=== PATIENT | female | born 1955 | race Asian ===

== ENCOUNTER 2016-06-20 15:04 | Emergency (ER) | payer OTHER ==
--- NOTE | 2016-06-20 17:25 | ED NURSING NOTES ---
Clinical Report - Nurses [facility] [address], [place] [address] 06/20/2016 15:06 Patient: KEYSHAWN DANIEL TRIAGE Triage time 1524. Acuity: LEVEL 3. Chief Complaint: VOMITING BLOOD and BLACK STOOLS. Alert. No acute distress. --15:31 Aracely Avery 15:27 06/20/16. BP: 151/111. HR: 96. RR: 16. O2 saturation: 100%. Temp: 97.7 F. Pain level now 0/10. --15:31 Aracely Avery. Weight: 57.1 kg. Height/Length: 62 inches. BMI: 23. --15:24 Aracely Avery. Medications HTN med. --15:29 Aracely Avery CHOLESTEROL MED. --15:29 Aracely Avery. Allergies No Known Drug Allergy. --17:40 Aracely Avery. History Arrived by private vehicle. Historian: patient. Unaccompanied. This started last night. ( Pt c/o vomiting blood, black stools, and feels that there is swelling in throat she thinks is cancer, pt had colonoscopy done last year). She has had vomiting. Treatment GUIDANCE SECRETARY: None. PAST MEDICAL HX: ( Unknown- Pt unable to relay details). SOCIAL HX: Never smoker. --15:31 Aracely Avery. PROBLEMS: Hypercholesterolemia. Hypertension. --15:29 Aracely Avery. ADDITIONAL SURGERIES: Colonoscopy. --15:29 Aracely Avery. Interventions ID band on patient. To treatment room. --15:31 Aracely Avery. PHYSICAL ASSESSMENT Ambulatory to room. Patient gowned. GENERAL / NEURO / PSYCH: Alert. Oriented X 4. Appears anxious. HEENT: Mucous membranes are pink. RESPIRATORY: Respirations not labored. Breath sounds within normal limits. CVS: Normal sinus rhythm noted. Capillary refill less than 2 seconds. GI / : The patient has had nausea. Emesis noted. Abdomen soft. Bowel sounds within normal limits. Stool color is abnormal. SKIN: Skin is warm and dry. --15:31 Aracely Avery. NURSING PROGRESS NOTES The plan of care for this patient has been created. Reassurance given. Call light placed in reach. Bed placed in lowest position. Brakes of bed on. Patient ready for evaluation- chart flagged. --15:32 Aracely Avery 15:42 06/20/2016 Site #1 started via IV in the right antecubital space with an 20g angiocath; one attempt. Blood drawn: rainbow set. Saline lock flushed with 10 mL saline. --15:42 Nguyen Fields R.N. EKG time: (1656). EKG was ordered, performed by a tech and shown to the ED physician. --16:59 Mary Puentes, PASCUAL Tech1 [employer] provided for the rectal exam by the physician. --17:22 Jaycob Perez R.N. DISPOSITION / DISCHARGE 17:39 06/20/2016 Site #1 removed upon discharge. Pressure dressing applied. --17:39 Aracely Avery Departure time: 1736. Condition at departure: improved and stable. Learning barriers present. Ability to learn limited by language barrier; teaching performed via interpreter translator service. Discharge instructions provided and reviewed with the patient. Reviewed medication(s). Patient verbalized understanding. Written instructions provided in Amharic. The patient was discharged by the physician. She was discharged home and unaccompanied at time of discharge. She left the Emergency Department ambulatory and via private vehicle. Patient driving. --17:39 Aracely Avery 17:39 06/20/16. BP: 132/72. HR: 72. RR: 18. O2 saturation: 99%. --17:39 Aracely Avery. Locked/Released at 06/20/2016 17:41 by Aracely Avery,
--- NOTE | 2016-06-20 17:25 | ED NURSING NOTES ---
Clinical Report - Nurses [facility] [address], [place] [address] 06/20/2016 15:06 Patient: KEYSHAWN DANIEL TRIAGE Triage time 1524. Acuity: LEVEL 3. Chief Complaint: VOMITING BLOOD and BLACK STOOLS. Alert. No acute distress. --15:31 Aracely Avery 15:27 06/20/16. BP: 151/111. HR: 96. RR: 16. O2 saturation: 100%. Temp: 97.7 F. Pain level now 0/10. --15:31 Aracely Avery. Weight: 57.1 kg. Height/Length: 62 inches. BMI: 23. --15:24 Aracely Avery. Medications HTN med. --15:29 Aracely Avery CHOLESTEROL MED. --15:29 Aracely Avery. Allergies No Known Drug Allergy. --17:40 Aracely Avery. History Arrived by private vehicle. Historian: patient. Unaccompanied. This started last night. ( Pt c/o vomiting blood, black stools, and feels that there is swelling in throat she thinks is cancer, pt had colonoscopy done last year). She has had vomiting. Treatment BOILERMAKER: None. PAST MEDICAL HX: ( Unknown- Pt unable to relay details). SOCIAL HX: Never smoker. --15:31 Aracely Avery. PROBLEMS: Hypercholesterolemia. Hypertension. --15:29 Aracely Avery. ADDITIONAL SURGERIES: Colonoscopy. --15:29 Aracely Avery. Interventions ID band on patient. To treatment room. --15:31 Aracely Avery. PHYSICAL ASSESSMENT Ambulatory to room. Patient gowned. GENERAL / NEURO / PSYCH: Alert. Oriented X 4. Appears anxious. HEENT: Mucous membranes are pink. RESPIRATORY: Respirations not labored. Breath sounds within normal limits. CVS: Normal sinus rhythm noted. Capillary refill less than 2 seconds. GI / : The patient has had nausea. Emesis noted. Abdomen soft. Bowel sounds within normal limits. Stool color is abnormal. SKIN: Skin is warm and dry. --15:31 Aracely Avery. NURSING PROGRESS NOTES The plan of care for this patient has been created. Reassurance given. Call light placed in reach. Bed placed in lowest position. Brakes of bed on. Patient ready for evaluation- chart flagged. --15:32 Aracely Avery 15:42 06/20/2016 Site #1 started via IV in the right antecubital space with an 20g angiocath; one attempt. Blood drawn: rainbow set. Saline lock flushed with 10 mL saline. --15:42 Nguyen Fields R.N. EKG time: (1656). EKG was ordered, performed by a tech and shown to the ED physician. --16:59 Mary Puentes, PASCUAL Tech1 Compliance Reviewer provided for the rectal exam by the physician. --17:22 Jaycob Perez R.N. DISPOSITION / DISCHARGE 17:39 06/20/2016 Site #1 removed upon discharge. Pressure dressing applied. --17:39 Aracely Avery Departure time: 1736. Condition at departure: improved and stable. Learning barriers present. Ability to learn limited by language barrier; teaching performed via hypercil core transformer assembler service. Discharge instructions provided and reviewed with the patient. Reviewed medication(s). Patient verbalized understanding. Written instructions provided in Yoruba. The patient was discharged by the physician. She was discharged home and unaccompanied at time of discharge. She left the Emergency Department ambulatory and via private vehicle. Patient driving. --17:39 Aracely Avery 17:39 06/20/16. BP: 132/72. HR: 72. RR: 18. O2 saturation: 99%. --17:39 Aracely Avery. Locked/Released at 06/20/2016 17:41 by Aracely Avery,
--- NOTE | 2016-06-20 17:25 | ED ORDER SUMMARY ---
..... Patient: KEYSHAWN DANIEL OrderSheet [facility] VisitID: [id number] [address] [place] [address] 61y, F Registration Date/Time: 06/20/2016 ORDER SHEET Weight: 57.1 kg Allergies: No Known Drug Allergy GENERAL ORDERS: CBC w Diff Urgent (15:45 06/20/2016 EBjim per protocol) (15:45 EBonirineo) CMP Urgent (15:45 06/20/2016 Audrey per protocol) (15:45 EBonham) UA-Culture if indicated Urgent (15:45 06/20/2016 Audrey per protocol) (Ack 15:52 TBergley) CRP Urgent (15:57 06/20/2016 Mag ARRIOLA) (Ack 15:57 TBergley) (16:28 TBergley) Chest 2V Urgent (16:26 06/20/2016 Mag ARRIOLA) (Ack 16:28 TBergley) (17:07 MCampbell) Soft Tissue Neck Urgent (16:26 06/20/2016 Mag ARRIOLA) (Ack 16:28 TBergley) (17:07 MCampbell) CPK Urgent (16:26 06/20/2016 Mag ARRIOLA) (Ack 16:28 TBergley) (16:28 TBergley) Troponin-I Urgent (16:26 06/20/2016 Mag ARRIOLA) (Ack 16:28 TBergley) (16:28 TBergley) EKG - ER Stat (16:26 06/20/2016 Mag ARRIOLA) (Ack 16:28 TBergley) (16:48 LNations ER Tech1) MEDICATION ORDERS: IV FLUIDS: IV Saline Lock (15:45 06/20/2016 Audrey per protocol) (15:45 EBjim) ORDER SHEET NOTES: [Electronically signed by Aracely Avery (17:41 06/20/2016)] [Electronically signed by Tacho Aldana MD (13:27 06/21/2016)] [Electronically locked/signed by Aracely Avery (17:41 06/20/2016)]
--- NOTE | 2016-06-20 17:25 | ED CLINICAL REPORT ---
Clinical Report - Physicians/Mid Levels [facility] [address] [place] [address] 06/20/2016 15:06 Patient: KEYSHAWN DANIEL Time Seen: 15:44 Jun 20 2016. Arrived- By private vehicle. Historian- patient. CPT: ER phys charges level 4 (#[id number]). HISTORY OF PRESENT ILLNESS Chief Complaint: VOMITING BLOOD and DARK/TARRY STOOLS. This started last night and has been moderate. (This started last night. ( Pt c/o vomiting blood, black stools, and feels that there is swelling in throat she thinks is cancer, pt had colonoscopy done last year). She has had vomiting.). Is still present. The patient has had dark stools and vomiting. Similar symptoms previously: None. Recent medical care: Not recently seen/assessed. REVIEW OF SYSTEMS No dizziness, fainting episodes, weakness, fever or sore throat. No epistaxis, cough, difficulty breathing, chest pain or hematuria. No skin rash, enlarged lymph nodes or chills. All systems otherwise negative, except as recorded above. PAST HISTORY Hypertension. colonoscopy done last year): large poly surgically removed. Benign Asthma. Hyperlipidemia. Medications: CHOLESTEROL MED. HTN med. SOCIAL HISTORY Never smoker. ADDITIONAL NOTES The nursing notes have been reviewed. PHYSICAL EXAM Vital Signs: 06/20/2016 15:27 BP: 151/111. HR: 96. RR: 16. O2 saturation: 100%. Temp: 97.7 F. Appearance: Alert. Anxious. Patient in mild distress. Eyes: Pupils equal, round and reactive to light. Eyes normal inspection. ENT: Ears normal. Nose normal. Pharynx normal. Neck: Normal inspection. Neck supple. No meningeal signs, JVD, lymphadenopathy, thyromegaly or carotid bruit. (No mass). CVS: Normal heart rate and rhythm. Heart sounds normal. Pulses normal. Respiratory: No respiratory distress. Breath sounds normal. Abdomen: Soft and nontender. Abnormal bowel sounds. Back: Normal inspection. Rectal: Rectal exam normal and nontender. Stool heme negative; hemoccult quality control auditor check passed. (POC test reference range: negative). Skin: Skin warm. Normal skin color. No rash. Extremities: Extremities exhibit normal ROM. No lower extremity edema. Neuro: Oriented X 3. No motor deficit. No sensory deficit. Reflexes normal. LABS, X-RAYS, AND EKG EKG: Normal EKG. X-Rays: Soft tissue neck negative. Laboratory Tests: CBC w Diff: (MICHELE: 06/20/2016 15:35) ( [facility] 06/20/2016 16:20) Final results Test Result Flag Units (Reference) WHITE BLOOD COUNT 7.2 K/uL (4.5-11.5) RED BLOOD COUNT 4.63 M/uL (4.00-5.20) HEMOGLOBIN 13.2 gm/dL (12.0-16.0) HEMATOCRIT 39.9 % (36.0-46.0) MEAN CELL VOLUME 86 fL (80-100) MEAN CORPUSCULAR HGB 29 pg (26-34) MEAN CORPUSCULAR HGB CONC 33 g/dL (31-37) RED CELL DISTRIBUTION WIDTH 13.0 % (11.6-14.8) PLATELET COUNT 296 K/uL (150-400) NEUTROPHIL % 58.5 % (50-75) LYMPH % 29.8 % (25-40) MONO % 5.4 % (3-14) EOSINOPHIL % 4.9 H % (0-4) BASOPHIL % 1.4 % (0-2) CPK: (MICHELE: 06/20/2016 15:35) ( [facility] 06/20/2016 16:52) Final results Test Result Flag Units (Reference) CPK 140 U/L (24-260) TROPONIN I <0.05 ng/mL (0.00-1.5) TROPONIN REFERENCE RANGE:<0.1 NEGATIVE0.1-1.5 INDETERMINANT>1.5 POSITIVE CMP: (MICHELE: 06/20/2016 15:35) ( [facility] 06/20/2016 16:25) Final results Test Result Flag Units (Reference) GLUCOSE 124 H mg/dL (70-110) BUN 16 mg/dL (7-18) CREATININE 0.7 mg/dL (0.6-1.3) Estimated GFR >60 mL/min Estimated GFR- >60 mL/min Note: Persistent reduction over 3 months in eGFR<60 mL/min/1.73 m2 defines CKD. Patients with eGFR values>=60 mL/min/1.73 m2 may also have CKD if evidence ofpersistent proteinuria. Additional information may be foundat www.kidney.org. SODIUM 144 mmol/L (136-145) POTASSIUM 3.8 mmol/L (3.5-5.1) CHLORIDE 106 mmol/L (98-107) CARBON DIOXIDE 28 mmol/L (21-32) CALCIUM 8.7 mg/dL (8.5-10.1) TOTAL PROTEIN 8.2 g/dL (6.4-8.2) ALBUMIN 3.8 g/dL (3.3-5.0) BILIRUBIN, TOTAL 0.4 mg/dL (0.0-1.0) ALKALINE PHOSPHATASE 88 U/L (46-116) AST (SGOT) 27 U/L (15-37) ALT (SGPT) 50 U/L (12-78) C-REACTIVE PROTEIN 0.3 mg/dL (0.0-0.9) . PROGRESS AND PROCEDURES Course of Care: Patient likely has a throat abrasion. She is also out of her pantoprazole. We'll treat the throat abrasion with topical Carafate and the refill for pantoprazole will be written for as well. Patient/family counseled. Disposition: Discharged. Condition: stable. CLINICAL IMPRESSION Throat abraison. INSTRUCTIONS Drink plenty of fluids. (soft foods.). Warnings: Further evaluation is necessary. GENERAL WARNINGS: Return or contact your physician immediately if your condition worsens or changes unexpectedly, if not improving as expected, or if other problems arise. Your Current Medications: CONTINUE TAKING THE FOLLOWING MEDICATIONS: CHOLESTEROL MED*. HTN med*. Prescription Medications: Carafate Liquid 1g/10 mL: four times daily (before meals and at bedtime) for 10 days. Dispense sufficient quantity. No refill. Pantoprazole 40 mg tablets: Take 1 tablet orally once daily. Dispense thirty (30). No refills. Follow-up: Follow up with your doctor as scheduled. Understanding of the discharge instructions verbalized by patient. (Electronically signed by Tacho Aldana MD 06/21/2016 13:27)
--- NOTE | 2016-06-20 17:25 | ED CLINICAL REPORT ---
Clinical Report - Physicians/Mid Levels [facility] [address] [place] [address] 06/20/2016 15:06 Patient: KEYSHAWN DANIEL Time Seen: 15:44 Jun 20 2016. Arrived- By private vehicle. Historian- patient. CPT: ER phys charges level 4 (#[id number]). HISTORY OF PRESENT ILLNESS Chief Complaint: VOMITING BLOOD and DARK/TARRY STOOLS. This started last night and has been moderate. (This started last night. ( Pt c/o vomiting blood, black stools, and feels that there is swelling in throat she thinks is cancer, pt had colonoscopy done last year). She has had vomiting.). Is still present. The patient has had dark stools and vomiting. Similar symptoms previously: None. Recent medical care: Not recently seen/assessed. REVIEW OF SYSTEMS No dizziness, fainting episodes, weakness, fever or sore throat. No epistaxis, cough, difficulty breathing, chest pain or hematuria. No skin rash, enlarged lymph nodes or chills. All systems otherwise negative, except as recorded above. PAST HISTORY Hypertension. colonoscopy done last year): large poly surgically removed. Benign Asthma. Hyperlipidemia. Medications: CHOLESTEROL MED. HTN med. SOCIAL HISTORY Never smoker. ADDITIONAL NOTES The nursing notes have been reviewed. PHYSICAL EXAM Vital Signs: 06/20/2016 15:27 BP: 151/111. HR: 96. RR: 16. O2 saturation: 100%. Temp: 97.7 F. Appearance: Alert. Anxious. Patient in mild distress. Eyes: Pupils equal, round and reactive to light. Eyes normal inspection. ENT: Ears normal. Nose normal. Pharynx normal. Neck: Normal inspection. Neck supple. No meningeal signs, JVD, lymphadenopathy, thyromegaly or carotid bruit. (No mass). CVS: Normal heart rate and rhythm. Heart sounds normal. Pulses normal. Respiratory: No respiratory distress. Breath sounds normal. Abdomen: Soft and nontender. Abnormal bowel sounds. Back: Normal inspection. Rectal: Rectal exam normal and nontender. Stool heme negative; hemoccult quality compliance manager check passed. (POC test reference range: negative). Skin: Skin warm. Normal skin color. No rash. Extremities: Extremities exhibit normal ROM. No lower extremity edema. Neuro: Oriented X 3. No motor deficit. No sensory deficit. Reflexes normal. LABS, X-RAYS, AND EKG EKG: Normal EKG. X-Rays: Soft tissue neck negative. Laboratory Tests: CBC w Diff: (MICHELE: 06/20/2016 15:35) ( [facility] 06/20/2016 16:20) Final results Test Result Flag Units (Reference) WHITE BLOOD COUNT 7.2 K/uL (4.5-11.5) RED BLOOD COUNT 4.63 M/uL (4.00-5.20) HEMOGLOBIN 13.2 gm/dL (12.0-16.0) HEMATOCRIT 39.9 % (36.0-46.0) MEAN CELL VOLUME 86 fL (80-100) MEAN CORPUSCULAR HGB 29 pg (26-34) MEAN CORPUSCULAR HGB CONC 33 g/dL (31-37) RED CELL DISTRIBUTION WIDTH 13.0 % (11.6-14.8) PLATELET COUNT 296 K/uL (150-400) NEUTROPHIL % 58.5 % (50-75) LYMPH % 29.8 % (25-40) MONO % 5.4 % (3-14) EOSINOPHIL % 4.9 H % (0-4) BASOPHIL % 1.4 % (0-2) CPK: (MICHELE: 06/20/2016 15:35) ( [facility] 06/20/2016 16:52) Final results Test Result Flag Units (Reference) CPK 140 U/L (24-260) TROPONIN I <0.05 ng/mL (0.00-1.5) TROPONIN REFERENCE RANGE:<0.1 NEGATIVE0.1-1.5 INDETERMINANT>1.5 POSITIVE CMP: (MICHELE: 06/20/2016 15:35) ( [facility] 06/20/2016 16:25) Final results Test Result Flag Units (Reference) GLUCOSE 124 H mg/dL (70-110) BUN 16 mg/dL (7-18) CREATININE 0.7 mg/dL (0.6-1.3) Estimated GFR >60 mL/min Estimated GFR- >60 mL/min Note: Persistent reduction over 3 months in eGFR<60 mL/min/1.73 m2 defines CKD. Patients with eGFR values>=60 mL/min/1.73 m2 may also have CKD if evidence ofpersistent proteinuria. Additional information may be foundat www.kidney.org. SODIUM 144 mmol/L (136-145) POTASSIUM 3.8 mmol/L (3.5-5.1) CHLORIDE 106 mmol/L (98-107) CARBON DIOXIDE 28 mmol/L (21-32) CALCIUM 8.7 mg/dL (8.5-10.1) TOTAL PROTEIN 8.2 g/dL (6.4-8.2) ALBUMIN 3.8 g/dL (3.3-5.0) BILIRUBIN, TOTAL 0.4 mg/dL (0.0-1.0) ALKALINE PHOSPHATASE 88 U/L (46-116) AST (SGOT) 27 U/L (15-37) ALT (SGPT) 50 U/L (12-78) C-REACTIVE PROTEIN 0.3 mg/dL (0.0-0.9) . PROGRESS AND PROCEDURES Course of Care: Patient likely has a throat abrasion. She is also out of her pantoprazole. We'll treat the throat abrasion with topical Carafate and the refill for pantoprazole will be written for as well. Patient/family counseled. Disposition: Discharged. Condition: stable. CLINICAL IMPRESSION Throat abraison. INSTRUCTIONS Drink plenty of fluids. (soft foods.). Warnings: Further evaluation is necessary. GENERAL WARNINGS: Return or contact your physician immediately if your condition worsens or changes unexpectedly, if not improving as expected, or if other problems arise. Your Current Medications: CONTINUE TAKING THE FOLLOWING MEDICATIONS: CHOLESTEROL MED*. HTN med*. Prescription Medications: Carafate Liquid 1g/10 mL: four times daily (before meals and at bedtime) for 10 days. Dispense sufficient quantity. No refill. Pantoprazole 40 mg tablets: Take 1 tablet orally once daily. Dispense thirty (30). No refills. Follow-up: Follow up with your doctor as scheduled. Understanding of the discharge instructions verbalized by patient. (Electronically signed by Tacho Aldana MD 06/21/2016 13:27)
--- NOTE | 2016-06-20 17:25 | ED ORDER SUMMARY ---
..... Patient: KEYSHAWN DANIEL OrderSheet [facility] VisitID: [id number] [address] [address] 61y, F Registration Date/Time: 06/20/2016 ORDER SHEET Weight: 57.1 kg Allergies: No Known Drug Allergy GENERAL ORDERS: CBC w Diff Urgent (15:45 06/20/2016 EBjim per protocol) (15:45 EBonirineo) CMP Urgent (15:45 06/20/2016 Audrey per protocol) (15:45 EBonham) UA-Culture if indicated Urgent (15:45 06/20/2016 Audrey per protocol) (Ack 15:52 TBergley) CRP Urgent (15:57 06/20/2016 Mag ARRIOLA) (Ack 15:57 TBergley) (16:28 TBergley) Chest 2V Urgent (16:26 06/20/2016 Mag ARRIOLA) (Ack 16:28 TBergley) (17:07 MCampbell) Soft Tissue Neck Urgent (16:26 06/20/2016 Mag ARRIOLA) (Ack 16:28 TBergley) (17:07 MCampbell) CPK Urgent (16:26 06/20/2016 Mag ARRIOLA) (Ack 16:28 TBergley) (16:28 TBergley) Troponin-I Urgent (16:26 06/20/2016 Mag ARRIOLA) (Ack 16:28 TBergley) (16:28 TBergley) EKG - ER Stat (16:26 06/20/2016 Mag ARRIOLA) (Ack 16:28 TBergley) (16:48 LNations ER Tech1) MEDICATION ORDERS: IV FLUIDS: IV Saline Lock (15:45 06/20/2016 Audrey per protocol) (15:45 EBjim) ORDER SHEET NOTES: [Electronically signed by Aracely Avery (17:41 06/20/2016)] [Electronically signed by Tacho Aldana MD (13:27 06/21/2016)] [Electronically locked/signed by Aracely Avery (17:41 06/20/2016)]
--- NOTE | 2016-06-20 17:31 | DIAGNOSTIC IMAGING REPORT ---
PROCEDURE: XR SOFT TISSUE NECK INDICATION: Pain and palpable area. TECHNIQUE: AP and lateral views. COMPARISON: None. FINDINGS: Soft tissues of the neck are within normal limits, including the airway, laryngeal ventricle, and epiglottis. Nasopharynx appears normal. Mild to moderate degenerative change of the cervical spine. IMPRESSION: 1. Normal soft tissues of the neck. 2. Findings discussed with Dr. Aldana.
--- NOTE | 2016-06-20 17:33 | DIAGNOSTIC IMAGING REPORT ---
PROCEDURE: XR CHEST 2 VIEW INDICATION: CHEST PAIN TECHNIQUE: PA and lateral views. COMPARISON: None. FINDINGS: Lungs are clear with mildly prominent fat pads at the cardiophrenic angles. Heart and mediastinum are normal. Thorax is normal. IMPRESSION: 1. Negative chest.
--- NOTE | 2016-06-21 13:28 | ED DISCHARGE INSTRUCTIONS ---
Patient: KEYSHAWN DANIEL General Instructions [facility] VisitID: [id number] [address] [place] [address] 61y, F Registration Date/Time: 06/20/2016 Throat abraison. INSTRUCTIONS Drink plenty of fluids. (soft foods.). Warnings: Further evaluation is necessary. GENERAL WARNINGS: Return or contact your physician immediately if your condition worsens or changes unexpectedly, if not improving as expected, or if other problems arise. Your Current Medications: CONTINUE TAKING THE FOLLOWING MEDICATIONS: CHOLESTEROL MED*. HTN med*. Prescription Medications: Carafate Liquid 1g/10 mL: four times daily (before meals and at bedtime) for 10 days. Dispense sufficient quantity. No refill. Pantoprazole 40 mg tablets: Take 1 tablet orally once daily. Dispense thirty (30). No refills. Follow-up: Follow up with your doctor as scheduled. Understanding of the discharge instructions verbalized by patient. ADDITIONAL INFORMATION Sucralfate Oral suspension What is this medicine? SUCRALFATE (CHONG amadou fate) helps to treat ulcers of the intestine. How should I use this medicine? Take this medicine by mouth with a glass of water. Follow the directions on the prescription label. Shake well before using. Use a specially marked spoon or container to measure your medicine. Ask your pharmacist if you do not have one. Household spoons are not accurate. This medicine works best if you take it on an empty stomach, 1 hour before meals. Take your doses at regular intervals. Do not take your medicine more often than directed. Do not stop taking except on your doctor's advice. Talk to your veneer stock grader regarding the use of this medicine in children. Special care may be needed. What side effects may I notice from receiving this medicine? Side effects that you should report to your doctor or health inspector health care facilities as soon as possible: allergic reactions like skin rash, itching or hives, swelling of the face, lips, or tongue difficulty breathing Side effects that usually do not require medical attention (report to your doctor or health inspector health care facilities if they continue or are bothersome): back pain constipation drowsy, dizzy dry mouth headache stomach upset, gas trouble sleeping What may interact with this medicine? antacid cimetidine digoxin ketoconazole phenytoin quinidine ranitidine some antibiotics like ciprofloxacin, norfloxacin, and ofloxacin theophylline thyroid hormones warfarin What if I miss a dose? If you miss a dose, take it as soon as you can. If it is almost time for your next dose, take only that dose. Do not take double or extra doses. Where should I keep my medicine? Keep out of the reach of children. Store at room temperature between 20 and 25 degrees C (68 and 77 degrees F). Keep container tightly closed. Throw away any unused medicine after the expiration date. What should I tell my health care provider before I take this medicine? They need to know if you have any of these conditions: kidney disease an unusual or allergic reaction to sucralfate, other medicines, foods, dyes, or preservatives or trying to get breast-feeding What should I watch for while using this medicine? Visit your doctor or health inspector health care facilities for regular check ups. Let your doctor know if your symptoms do not improve or if you feel worse. Antacids should not be taken within one half hour before or after this medicine. You have been given the following additional information: Sucralfate Oral suspension (Electronically signed by Tacho Aldana MD 06/21/2016 13:27)
--- NOTE | 2016-06-21 13:28 | ED MAR SUMMARY ---
..... Medication Administration Record [facility] [address], [place] [id number] Patient: KEYSHAWN DANIEL Visit ID: [id number] 61y, F Weight: 57.1 kg Height/Length: 62 in BMI: 23 ALLERGIES: No Known Drug Allergy
--- NOTE | 2016-06-21 13:28 | ED DISCHARGE INSTRUCTIONS ---
Patient: KEYSHAWN DANIEL General Instructions [facility] VisitID: [id number] [address] [place] [address] 61y, F Registration Date/Time: 06/20/2016 Throat abraison. INSTRUCTIONS Drink plenty of fluids. (soft foods.). Warnings: Further evaluation is necessary. GENERAL WARNINGS: Return or contact your physician immediately if your condition worsens or changes unexpectedly, if not improving as expected, or if other problems arise. Your Current Medications: CONTINUE TAKING THE FOLLOWING MEDICATIONS: CHOLESTEROL MED*. HTN med*. Prescription Medications: Carafate Liquid 1g/10 mL: four times daily (before meals and at bedtime) for 10 days. Dispense sufficient quantity. No refill. Pantoprazole 40 mg tablets: Take 1 tablet orally once daily. Dispense thirty (30). No refills. Follow-up: Follow up with your doctor as scheduled. Understanding of the discharge instructions verbalized by patient. ADDITIONAL INFORMATION Sucralfate Oral suspension What is this medicine? SUCRALFATE (CHONG amadou fate) helps to treat ulcers of the intestine. How should I use this medicine? Take this medicine by mouth with a glass of water. Follow the directions on the prescription label. Shake well before using. Use a specially marked spoon or container to measure your medicine. Ask your pharmacist if you do not have one. Household spoons are not accurate. This medicine works best if you take it on an empty stomach, 1 hour before meals. Take your doses at regular intervals. Do not take your medicine more often than directed. Do not stop taking except on your doctor's advice. Talk to your ceramic design engineer regarding the use of this medicine in children. Special care may be needed. What side effects may I notice from receiving this medicine? Side effects that you should report to your doctor or health care aid as soon as possible: allergic reactions like skin rash, itching or hives, swelling of the face, lips, or tongue difficulty breathing Side effects that usually do not require medical attention (report to your doctor or health care aid if they continue or are bothersome): back pain constipation drowsy, dizzy dry mouth headache stomach upset, gas trouble sleeping What may interact with this medicine? antacid cimetidine digoxin ketoconazole phenytoin quinidine ranitidine some antibiotics like ciprofloxacin, norfloxacin, and ofloxacin theophylline thyroid hormones warfarin What if I miss a dose? If you miss a dose, take it as soon as you can. If it is almost time for your next dose, take only that dose. Do not take double or extra doses. Where should I keep my medicine? Keep out of the reach of children. Store at room temperature between 20 and 25 degrees C (68 and 77 degrees F). Keep container tightly closed. Throw away any unused medicine after the expiration date. What should I tell my health care provider before I take this medicine? They need to know if you have any of these conditions: kidney disease an unusual or allergic reaction to sucralfate, other medicines, foods, dyes, or preservatives or trying to get breast-feeding What should I watch for while using this medicine? Visit your doctor or health care aid for regular check ups. Let your doctor know if your symptoms do not improve or if you feel worse. Antacids should not be taken within one half hour before or after this medicine. You have been given the following additional information: Sucralfate Oral suspension (Electronically signed by Tacho Aldana MD 06/21/2016 13:27)
--- NOTE | 2016-06-21 13:28 | ED MED RECONCILIATION SUMMARY ---
Patient: KEYSHAWN DANIEL Medication Reconciliation Report [facility] VisitID: [id number] [address] [place] [address] 61y, F Registration Date/Time: 06/20/2016 Weight: 57.1 kg Height/Length: 62 in. BMI: 23.0 ALLERGIES: No Known Drug Allergy The patient's Home Medications are listed below: CONTINUE TAKING THE FOLLOWING MEDICATIONS: CHOLESTEROL MED HTN med The source(s) of the original Home Medication information: Not obtained. The following Medications were given to the patient in the Emergency Department: None. The following Medications were prescribed to the patient: Carafate Liquid 1g/10 mL: four times daily (before meals and at bedtime) for 10 days. Dispense sufficient quantity. No refill. -- Tacho Aldana MD Pantoprazole 40 mg tablets: Take 1 tablet orally once daily. Dispense thirty (30). No refills. -- Tacho Aldana MD
--- NOTE | 2016-06-21 13:28 | ED MED RECONCILIATION SUMMARY ---
Patient: KEYSHAWN DANIEL Medication Reconciliation Report [facility] VisitID: [id number] [address] [place] [address] 61y, F Registration Date/Time: 06/20/2016 Weight: 57.1 kg Height/Length: 62 in. BMI: 23.0 ALLERGIES: No Known Drug Allergy The patient's Home Medications are listed below: CONTINUE TAKING THE FOLLOWING MEDICATIONS: CHOLESTEROL MED HTN med The source(s) of the original Home Medication information: Not obtained. The following Medications were given to the patient in the Emergency Department: None. The following Medications were prescribed to the patient: Carafate Liquid 1g/10 mL: four times daily (before meals and at bedtime) for 10 days. Dispense sufficient quantity. No refill. -- Tacho Aldana MD Pantoprazole 40 mg tablets: Take 1 tablet orally once daily. Dispense thirty (30). No refills. -- Tacho Aldana MD
--- NOTE | 2016-06-21 13:28 | ED MAR SUMMARY ---
..... Medication Administration Record [facility] [address] [place], [place] [id number] Patient: KEYSHAWN DANIEL Visit ID: [id number] 61y, F Weight: 57.1 kg Height/Length: 62 in BMI: 23 ALLERGIES: No Known Drug Allergy
== END 2016-06-20 17:36 | disposition home or self-care (01) ==
LOC: ED SRH 15:04
DX: S10.11XA Abrasion of throat, initial encounter (principal); I10 Essential (primary) hypertension; E78.5 Hyperlipidemia, unspecified; Z79.899 Other long term (current) drug therapy
CPT/HCPCS: 90100; 90616; 91585; 92610; 95059